=== PATIENT | male | born 1950 | race Caucasian/White ===

== ENCOUNTER 2022-11-25 09:59 | Outpatient (CLI) | payer MEDICARE, SELFPAY ==
--- NOTE | ~2022-11-25 | US_ITS ---
US scrotum doppler INDICATION: Enlarged swelling of the right testicle TECHNIQUE: Testicular sonogram utilizing grayscale and color Doppler FINDINGS: The testes are normal in size and appearance. No focal lesions are seen. The right testes measures 4 x 2.7 x 3.2 cm centimeters, and the left testis measures 4.9 x 3 x 2 cm cm. There is madison l vascular flow to both testes. There are bilateral epididymal cysts. There is a moderate right hydrocele. IMPRESSION: 1. Moderate-sized right hydrocele. 2: Bilateral epididymal cysts. Reviewed, dictated and finalized at location B.
== END 2022-11-25 10:00 | disposition home or self-care (01) ==
LOC: ANHIMG 10:02
PROVIDERS: PCP Nurse Practitioner; Visit Provider Nurse Practitioner
DX: N43.3 Hydrocele, unspecified (principal); N50.3 Cyst of epididymis
CPT/HCPCS: 76870; 93976

== ENCOUNTER 2024-06-15 10:13 | Outpatient (CLI) | payer MEDICARE, SELFPAY ==
--- NOTE | 2024-06-15 10:22 | ECG_ITS ---
Test Date: 2024-06-15 10:53:56 Measurements Intervals [place] Rate: 46 P: -30 [place]: 168 QRS: 37 QRSD: 83 T: 61 QT: 435 QTc: 381 Interpretive Statements SINUS BRADYCARDIA WITH OCCASIONAL SUPRAVENTRICULAR PREMATURE COMPLEXES No previous ECG available for comparison Electronically Signed On 06-15-2024 15:02:00 CDT by Florentin Canseco M.D.
--- OUTSIDE RECORDS SUMMARY | 2024-06-15 11:30 | XMS_ITS | Referral Summary ---
Author Organization [facility] Address [address] [place] [address] Care Team Providers Care Die Fitter Name Role Phone Colette Singh MD Primary Care Provider [phone] Colette Singh MD Unavailable [phone] Allergies No known active allergies Medications tiZANidine (ZANAFLEX) 4 mg tablet TK 1 T PO TID PRN FOR 7 DAYS 0 06/15/2018 Active testosterone cypionate (DEPO-TESTOTERON E) 200 mg/mL injection every 2 (two) weeks 09/28/2018 Active lisinopril-hydro CHLOROthiazide (ZESTORETIC) 10-12.5 mg per tabletIndication s:hypertension Take 1 tablet by mouth daily 90 tablet 1 07/08/2019 Active Active Problems Problem Noted Date Diagnosed Date Adult general medical exam 07/08/2019 Hypertension, essential 10/29/2018 Assessment & Plan (07/08/2019 9:21 AM CDT): Stable Cont prinzide Follow low salt diet Assessment & Plan (10/29/2018 12:29 PM CDT): Stable Cont prinzide Hypogonadism in male 10/29/2018 Assessment & Plan (10/29/2018 12:29 PM CDT): Stable Cont testosterone injections Erectile dysfunction 10/29/2018 Screening for colon cancer 10/29/2018 Elevated PSA 10/29/2018 Assessment & Plan (10/29/2018 12:29 PM CDT): F/u with urologist Social History Tobacco Use Types Packs/Day Years Used Date Smoking Tobacco: Former Cigarettes Q uit: 1991 Smokeless Tobacco: Never Alcohol Use Standard Drinks/Week Comments Yes 0 (1 standard drink = 0.6 oz pur e alcohol) AUDIT-C Answer Date Recorded Frequency of Alcohol Consumption Never 10/29/2018 Average Number of Drinks Not on file 019 Frequency of Binge Drinking Not on file 10/06 Personal Safety Answer Date Recorded Getting School Help Needed Not on file 06/21 Sex and Gender Information Value Date Recorded Sex Assigned at Not on file Legal Sex Male 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 Gender Identity Not on file Sexual Orientation Not on file Last Filed Vital Signs Vital Sign Reading Time Taken Comments Blood Pressure 122/78 10/29/2018 10:30 AM CDT Pulse 50 10/29/2018 10:30 AM CDT Temperature 36.4 C (97.6 F) 10/29/2018 10:30 AM CDT Respiratory Rate 18 10/29/2018 10:30 AM CDT Oxygen Saturation 99% 10/29/2018 10:30 AM CDT Inhaled Oxygen Concentration - - Weight 87 kg (191 lb 12.8 oz) 10/29/2018 10:30 A M CDT Height 170.2 cm (5' 7 ) 10/29/2018 10:30 AM CDT Body Mass Index 30.04 10/29/2018 10:30 AM CDT Plan of Treatment Not on file Insurance [employer] Address: [facility] [id number] [place] [address] [employer] Address: [facility] [id number] [place] [address] Care Teams Die Fitter Relationship Specialty Start Date End Date Colette Singh MD PCP - General Family Medicine 12/10/18 Colette Singh MD 12/10/18
--- OUTSIDE RECORDS SUMMARY | 2024-06-15 11:30 | XMS_ITS | Encounter Summary ---
Author Organization [facility] Facility Care Team Providers Care Uplands Division Director Name Role Phone Colette Singh MD Primary Care Provider [phone] Colette Singh MD Primary Care Provider [phone] Colette Singh MD Unavailable [phone] Encounter Details Date Type Department Care Team (Latest Contact Info) Description 07/16/2017 Orders Only [facility] CLINCONV ProviderCheryl MD [address] [place] [address] Social History Tobacco Use Types Packs/Day Years Used Date Smoking Tobacco: Never Assessed Sex and Gender Information Value Date Recorded Sex Assigned at Not on file Legal Sex Male 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 Historical Provider Final Res ult documented in this encounter Visit Diagnoses Not on filedocumented in this encounter Care Teams Uplands Division Director Relationship Specialty Start Date End Date Colette Singh MD PCP - General 06/11/18 12/09/18 Colette Singh MD PCP - General Family Medicine 12/10/18 Colette Singh MD 12/10/18 documented as of this encounter
--- OUTSIDE RECORDS SUMMARY | 2024-06-15 11:30 | XMS_ITS | Encounter Summary ---
Author Organization [facility] Facility Care Team Providers Care Afterschool Babysitter Name Role Phone Colette Singh MD Primary Care Provider [phone] Colette Singh MD Primary Care Provider [phone] Colette Singh MD Unavailable [phone] Encounter Details Date Type Department Care Team (Latest Contact Info) Description 08/14/2017 Orders Only [facility] CLINCONV ProviderCheryl MD [address] [place] [address] Social History Tobacco Use Types Packs/Day Years Used Date Smoking Tobacco: Never Assessed Sex and Gender Information Value Date Recorded Sex Assigned at Not on file 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 Historical Provider Final Res ult documented in this encounter Visit Diagnoses Not on filedocumented in this encounter Care Teams Afterschool Babysitter Relationship Specialty Start Date End Date Colette Singh MD PCP - General 06/11/18 12/09/18 Colette Singh MD PCP - General Family Medicine 12/10/18 Colette Singh MD 12/10/18 documented as of this encounter
--- OUTSIDE RECORDS SUMMARY | 2024-06-15 11:30 | XMS_ITS | Clinical Summary ---
Author Organization [facility] Address [address] [place] [address] Care Team Providers Care Roof Technician Name Role Phone Unavailable Primary Care Provider Unavailabl e Social History Tobacco Use Types Packs/Day Years Used Date Smoking Tobacco: Never Assessed Sex and Gender Information Value Date Recorded Sex Assigned at Not on file Legal Sex Male 8:04 PM CDT Gender Identity Not on file Sexual Orientation Not on file Plan of Treatment Health Maintenance Due Date Last Done Comments Colorectal Cancer Screening Colonoscopy (10 Years) 1950 Hepatitis C 1968 DTaP, Tdap and Td Vaccines ( 1 - Tdap) 1969 Zoster Vaccines (1 of 2) 2000 Pneumococcal Vaccine: 65+ Ye ars (1 of 1 - PCV) 2015 COVID-19 Vaccine ( - 2023-2 5 season) 2023 Influenza Adult (#1) 2024 RSV Immunization or 60+ Years (1 - 1-dose 75+ series) 2025 Meningococcal B Vaccine Aged Out No l onger eligible based on patient's age to complete this topic Meningococcal Vaccine Aged Out No viviana ga eligible based on patient's age to complete this topic RSV Immunizations Under 20 Months Aged Out No longer eligible based on patient's age to complete this topic
--- OUTSIDE RECORDS SUMMARY | 2024-06-15 11:30 | XMS_ITS | Clinical Summary ---
Author Organization [facility] Address [address] [place] [address] Care Team Providers Care Skeins Yarn Examiner Name Role Phone Colette Singh MD Primary Care Provider [phone] Colette Singh MD Unavailable [phone] Allergies No known active allergies Medications tiZANidine [...] (10/29/2018 12:29 PM CDT): F/u with urologist Surgical History Surgery Date Site/Laterality Comments HERNIA REPAIR 04/07/2009 - 04/06/2010 Right inguinal Medical History Medical History Date Comments Hypertension Low testosterone Family History Medical History Relation Name Comments No Known Problems Brother 1 No Known Problems Brother 2 No Known Problems Daughter 1 No Known Problems Daughter 2 No Known Problems Father Heart disease Mother No Known Problems Sister Relation Name Status Comments Brother 1 Alive Brother 2 Alive Daughter 1 Alive Daughter 2 Alive Father Mother Sister Alive Social History Tobacco Use Types Packs/Day Years [...] on file Legal 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
== END 2024-06-15 10:14 | disposition home or self-care (01) ==
PROVIDERS: PCP Internal Medicine; Visit Provider Internal Medicine
DX: R00.1 Bradycardia, unspecified (principal)
CPT/HCPCS: 93005; 93242

== ENCOUNTER 2024-09-02 14:38 | Outpatient (CLI) | payer MEDICARE, SELFPAY ==
--- OUTSIDE RECORDS SUMMARY | 2024-09-02 14:42 | XMS_ITS | Referral Summary ---
Author Organization [facility] Address [address] [place] [address] Care Team Providers Care Assisted Living Manager Name Role Phone Colette Singh MD Primary Care Provider [phone] Colette Singh MD Unavailable [phone] Allergies No known active allergies Medications tiZANidine [...] on file Legal Sex Male 3:02 PM CLINICAL IMPLEMENTATION SPECIALIST Gender Identity Not on file Sexual Orientation [...] A M CDT Height 170.2 cm (5' 7) 10/29/2018 10:30 AM CDT Body Mass Index 30.04 10/29/2018 10:30 AM CDT Plan of Treatment Not on file Insurance [employer] Address: [facility] [id number] [place] [address] [employer] Address: [facility] [id number] [place] [address] Care Teams Assisted Living Manager Relationship Specialty Start Date End Date Colette Singh MD PCP - General Family Medicine 12/10/18 Colette Singh MD 12/10/18
--- OUTSIDE RECORDS SUMMARY | 2024-09-02 14:42 | XMS_ITS | Clinical Summary ---
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
--- OUTSIDE RECORDS SUMMARY | 2024-09-02 14:42 | XMS_ITS | Encounter Summary ---
Author Organization [facility] Facility Care Team Providers Care Classification Case Manager Name Role Phone Colette Singh MD Primary Care Provider [phone] Colette Singh MD Primary Care Provider [phone] Colette Singh MD Unavailable [phone] Encounter Details Date Type Department Care Team (Latest Contact Info) Description 07/16/2017 Orders Only [facility] CLINCONV ProviderCheryl MD [address] [place] [address] Social History Tobacco Use Types Packs/Day Years Used Date Smoking Tobacco: Never Assessed Sex and Gender Information Value Date Recorded Sex Assigned at Not on file Legal Sex Male 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
--- OUTSIDE RECORDS SUMMARY | 2024-09-02 14:42 | XMS_ITS | Encounter Summary ---
Author Organization [facility] Facility Care Team Providers Care Photographic Equipment Mechanic Name Role Phone Colette Singh MD Primary Care Provider [phone] Colette Singh MD Primary Care Provider [phone] Colette Singh MD Unavailable [phone] Encounter Details Date Type Department Care Team (Latest Contact Info) Description 08/14/2017 Orders Only [facility] CLINCONV ProviderCheryl MD [address] [place] [address] Social History Tobacco Use Types Packs/Day Years Used Date Smoking Tobacco: Never Assessed Sex and Gender Information Value Date Recorded Sex Assigned at Not on file Legal 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
--- NOTE | 2024-09-02 15:08 | ECHO_ITS ---
Patient Info Name: aPto [place] Age: 74 years : 1950 Gender: Male Ht: 69 in Wt: 194 lbs BSA: 2.09 m2 HR: 47 bpm BP: 151 / 78 mmHg Technical Quality: Good Exam Date: 09/02/2024 3:17 PM Patient Status: O Admit Date: 09/02/2024 Exam Type: CA echo doppler color flow Complete two-dimensional, color flow and Doppler transthoracic echocardiogram is performed. Supervisor Soakers: Diana Iraheta Attending Provider: Arnulfo Cardoza DO Summary 1. Complete two-dimensional, color flow and Doppler transthoracic echocardiogram is performed. 2. Left ventricular chamber dimension is normal. 3. Left ventricular systolic function is normal, estimated at 60-65. 4. The left ventricular diastolic function is grade I diastolic dysfunction. 5. E/e' 6 is not elevated. 6. Left atrial chamber dimension is mildly enlarged. 7. There is mild aortic valve sclerosis. 8. There is trace mitral valve regurgitation. 9. There is trace tricuspid valve regurgitation. 10. No pulmonary hypertension, estimated pulmonary arterial systolic pressure is 30 mmHg. 11. Dilated inferior vena cava with >50% collapse upon inspiration consistent with elevated right atrial pressure, 10 mmHg. Left Ventricle Left ventricular chamber dimension is normal. Left ventricular systolic function is normal, estimated at 60-65. The left ventricular diastolic function is grade I diastolic dysfunction. E/e' 6 is not elevated. Right Ventricle Right ventricular chamber dimension is normal. Right ventricular systolic function is normal and with normal TAPSE 2.9 cm. Left Atria Left atrial chamber dimension is mildly enlarged. Right Atria Right atrial chamber dimension is normal. Aortic Valve The aortic valve is trileaflet. There is mild aortic valve sclerosis. There is no aortic valve stenosis. There is no aortic valve regurgitation. Pulmonic Valve There is no pulmonic regurgitation. Mitral Valve There is no mitral valve stenosis. There is trace mitral valve regurgitation. Tricuspid Valve There is trace tricuspid valve regurgitation. No pulmonary hypertension, estimated pulmonary arterial systolic pressure is 30 mmHg. Pericardium/Pleural There is no pericardial effusion. Inferior Vena Cava Dilated inferior vena cava with >50% collapse upon inspiration consistent with elevated right atrial pressure, 10 mmHg. Aorta The aortic root size at the sinus of Valsalva is normal. Left Ventricular Outflow Tract Name Value Normal LVOT 2D LVOT Diameter 2.5 cm LVOT Doppler LVOT Peak Velocity 111 cm/s LVOT Peak Gradient 5 mmHg LVOT Mean Gradient 2 mmHg LVOT VTI 23 cm LVOT VTI/AV VTI Ratio 0.9 LVOT Stroke Volume 112 ml LVOT CO 4.6 l/min LVOT CI 2.2 l/min/m2 Mitral Valve Name Value Normal MV Diastolic Function MV E Peak Velocity 66 cm/s MV A Peak Velocity 86 cm/s MV E/A 0.8 MV Decel Time (PW) 379 ms MV Annular TDI MV E/e' (Septal) 7.4 MV E/e' (Lateral) 5.9 MV E/e' (Average) 6.6 Tricuspid Valve Name Value Normal TV Regurgitation Doppler TR Peak Velocity 225 cm/s TR Peak Gradient 20 mmHg Estimated PAP/RSVP RA Pressure 10 mmHg <=5 PA Systolic Pressure 30 mmHg <36 RV Systolic Pressure 30 mmHg <36 TV Annular TDI TV Lateral Marly s' Velocity 20.0 cm/s >=9.5 Aortic Valve Name Value Normal AV Doppler AV Peak Velocity 121 cm/s AV Peak Gradient 6 mmHg AV Mean Gradient 3 mmHg AV VTI 25 cm AV Area (Cont Eq VTI) 4.5 cm2 >=3.0 AV Area (Cont Eq Mike) 4.5 cm2 AV DI (Mike) 0.92 AV Regurgitation 2D LVOT Area 4.9 cm2 Ventricles Name Value Normal LV Dimensions 2D/MM IVS Diastolic Thickness (2D) 1.0 cm 0.6-1.0 LVID Diastole (2D) 5.1 cm 4.2-5.8 LVIW Diastolic Thickness (2D) 1.0 cm 0.6-1.0 LVID Systole (2D) 3.3 cm 2.5-4.0 LVOT Diameter 2.5 cm LV Mass (2D Cubed) 187.60 g 88.00-224.00 LV Mass Index (2D Cubed) 90 g/m2 49-115 Relative Wall Thickness (2D) 0.39 <=0.42 LV Fractional Shortening/Ejection Fraction 2D/MM LV Fractional Shortening (2D) 35 % 25-43 LV EF (2D Teichallyz) 64 % LV Diastolic Volume (4C MOD) 119 ml LV EF (4C MOD) 66 % LV Diastolic Volume (2C MOD) 111 ml LV EF (2C MOD) 62 % LV Diastolic Volume (BP MOD) 117 ml 62-150 LV Diastolic Volume Index (BP MOD) 56 ml/m2 34-74 LV Systolic Volume (BP MOD) 41 ml 21-61 LV Systolic Volume Index (BP MOD) 20 ml/m2 11-31 LV EF (BP MOD) 65 % 52-72 LV Diastolic Length (4C) 8.8 cm LV Systolic Length (4C) 6.8 cm LV Stroke Volume (4C MOD) 79 ml Atria Name Value Normal LA Dimensions LA Volume (4C A-L) 37 ml LA Volume (BP A-L) 34 ml RA Dimensions RA Systolic Major [place] Length (4C) 4.8 cm 2.1-2.7 RA Area (4C) 12.1 cm2 <=18.0 Report Signatures
== END 2024-09-02 14:39 | disposition home or self-care (01) ==
PROVIDERS: PCP Internal Medicine; Visit Provider Internal Medicine Cardiovascular Disease
DX: I47.10 Supraventricular tachycardia, unspecified (principal)
CPT/HCPCS: 93306